=== PATIENT | female | born 1965 | race Hispanic/Latino ===

== ENCOUNTER → 2019-04-11 | Outpatient (CLI) | payer OTHER | END | disposition home or self-care (01) | LOC: SLP 19:58 | PROVIDERS: ATTEND Internal Medicine Critical Care Medicine | DX: G47.33 Obstructive sleep apnea (adult) (pediatric) (principal) | CPT/HCPCS: 95810 ==

== ENCOUNTER → 2019-04-30 | Outpatient (CLI) | payer OTHER | END | disposition home or self-care (01) | LOC: EDUNIT# 20:30 → SLP 20:34 | PROVIDERS: ATTEND Internal Medicine Critical Care Medicine | DX: G47.33 Obstructive sleep apnea (adult) (pediatric) (principal) | CPT/HCPCS: 95811 ==

== ENCOUNTER 2022-01-19 10:23 | Day surgery (SDC) | payer OTHER ==
[~2022-01-19] VITALS: Ht 172.7 cm; Wt 118.8 kg
[~2022-01-19 10:23] MED LIST: CETI10CA5 PO; DOCU-116 PO; GABA-529 PO; ROSU10TA28 PO; [UNRECOGNIZED DRUG - CODE] PO
[2022-01-19] MEDS ORDERED: 0.9%NACL 1000ML 1,000 ML IV ONE (10:43)
[2022-01-19 10:45] VITALS: BP 107/76
[2022-01-19] MEDS ORDERED: PROPOFOL 10 MG/ML 20ML VIAL IV ONE (11:03)
[2022-01-19 11:15] VITALS: BP 100/61
[2022-01-19 11:30] VITALS: BP 120/84
[2022-01-19 11:45] VITALS: BP 115/57
[2022-01-19 12:00] VITALS: BP 110/74
== END 2022-01-19 12:15 | disposition home or self-care (01) ==
LOC: DAH 10:23
PROVIDERS: ATTEND Internal Medicine Gastroenterology
DX: R10.13 Epigastric pain (principal); K21.00 Gastro-esophageal reflux disease with esophagitis, without bleeding; K31.89 Other diseases of stomach and duodenum; K29.50 Unspecified chronic gastritis without bleeding; I10 Essential (primary) hypertension; E78.00 Pure hypercholesterolemia, unspecified; E78.5 Hyperlipidemia, unspecified; E03.9 Hypothyroidism, unspecified; E66.9 Obesity, unspecified; Z79.899 Other long term (current) drug therapy; Z79.890 Hormone replacement therapy; Z90.710 Acquired absence of both cervix and uterus; Z90.49 Acquired absence of other specified parts of digestive tract; Z80.42 Family history of malignant neoplasm of prostate; Z68.42 Body mass index [BMI] 45.0-49.9, adult
CPT/HCPCS: 87426; 43239; J7030; J2704; A4620; A4215; A4223; A4222; A4221; A4663; A4606

== ENCOUNTER 2023-02-16 06:32 | Day surgery (SDC) | payer OTHER ==
[2023-02-14 10:52] VITALS: BP 126/80; PULSE 50; RESP 19
[~2023-02-16] VITALS: Ht 157.5 cm; Wt 118.8 kg
[2023-02-16] VITALS (12 sets, daily range): BP systolic 103–132; BP diastolic 62–81; PULSE 57–71; RESP 15–18
[~2023-02-16 06:32] MED LIST changes: +0.9%NACL 1000ML 1,000 ML IV ONE; -DOCU-116 PO; -GABA-529 PO; +RABE20TA30 PO; -ROSU10TA28 PO; -[UNRECOGNIZED DRUG - CODE] PO
[2023-02-16] MEDS ORDERED: PROPOFOL 10 MG/ML 20ML VIAL IV ONE ×2 (09:26→09:45)
[2023-02-16] MEDS ORDERED: LIDOCAINE PF 100MG/5ML (2%) SYRINGE 5ML ONE (09:26)
== END 2023-02-16 11:05 | disposition home or self-care (01) ==
LOC: ENDO 06:32 → DAH 06:32 → ENDO 11:05
PROVIDERS: ATTEND Internal Medicine
DX: Z12.11 Encounter for screening for malignant neoplasm of colon (principal); D12.2 Benign neoplasm of ascending colon; K64.8 Other hemorrhoids; K21.00 Gastro-esophageal reflux disease with esophagitis, without bleeding; R94.5 Abnormal results of liver function studies; R10.12 Left upper quadrant pain; K59.00 Constipation, unspecified; Q44.6 Cystic disease of liver; K76.0 Fatty (change of) liver, not elsewhere classified; E66.9 Obesity, unspecified; E03.9 Hypothyroidism, unspecified; E78.00 Pure hypercholesterolemia, unspecified; Z68.42 Body mass index [BMI] 45.0-49.9, adult
CPT/HCPCS: 45385; J7030 ×2; J2001; J2704 ×2; A4620; A4215 ×2; A4223; A7002; A4222; A4221; A4663; A4216; A4606; J3490